=== PATIENT | female | born 1995 | race Two or more races ===

== ENCOUNTER 2017-12-29 21:05 | Emergency (ER) | payer BC ==
[~2017-12-29] VITALS: Ht 157.5 cm; Wt 56.7 kg
[2017-12-29] MEDS ORDERED: NKM (21:17)
[2017-12-29 21:52] VITALS: BP 110/72
--- NOTE | 2017-12-29 22:07 | Emergency Room Report ---
History of Present Illness General Chief Complaint: Vomiting Source: Patient Present Illness HPI Pt. is here because she has been drinking. Denies specific trauma, no fall, no headache, no neck pain, no cp, no abd pain, no sob, no extremity pain. Prior history states had about 8 drink equivalents last night. Poor judgment; didn't realize. No report of trauma. The patient denies specific complaint. Pt. is sober and here with mom. Allergies: Coded Allergies: No Known Allergies (Unverified , 12/29/17) Patient History Last Menstrual Period: 1 week ago Nursing Documentation-[facility] Past Medical History: No Stated History Review of Systems Constitutional: Reports: no symptoms Eye: Reports: no symptoms ENT: Reports: no symptoms Respiratory: Reports: no symptoms Cardiovascular: Reports: no symptoms Gastrointestinal: Reports: nausea, vomiting Genitourinary: Reports: no symptoms Musculoskeletal: Reports: no symptoms Skin: Reports: no symptoms Psychiatric: Reports: no symptoms Neurological: Reports: no symptoms Endocrine: Reports: no symptoms Hematologic/Lymphatic: Reports: no symptoms Allergic: Reports: no symptoms All Other Systems: negative except mentioned in HPI Physical Exam Vital Signs Date Time Temp Pulse Resp B/P (MAP) Pulse Ox O2 Delivery O2 Flow Rate FiO2 12/29/17 21:12 98.3 110 16 111/72 96 Room Air 98.2 Sp02 EP Interpretation: reviewed, normal General Appearance: normal inspection, well appearing, no apparent distress, alert, GCS 15, non-toxic Head: normocephalic, atraumatic Eyes: bilateral eye normal inspection, bilateral eye PERRL, bilateral eye EOMI ENT: normal ENT inspection, hearing grossly normal, normal pharynx, no angioedema, normal voice, moist mucus membranes Neck: normal inspection, full range of motion, supple, no meningismus, no bony tend Respiratory: normal inspection, lungs clear, normal breath sounds, no rhonchi, no respiratory distress, no retraction, no accessory muscle use, no wheezing Cardiovascular #1: normal inspection, regular rate, rhythm, no edema Gastrointestinal: normal inspection, normal bowel sounds, non tender, soft, no mass, non-distended Musculoskeletal: gait/station normal, normal range of motion Neurologic: normal inspection, alert, oriented x3, responsive, motor strength/ tone normal Psychiatric: normal inspection, judgement/insight normal, memory normal Suicide Risk Assessment: Suicidal Ideation: No Had intent to initiate attempt: No Pt's plan for suicide attempt: No Has means to complete attempt: No Skin: normal inspection, normal color, no rash, warm/dry Medical Decision Making Diagnostic Impression: Primary Impression: Vomiting ER Course pt. is fine; she got drunk first time, not realizing hr here 99, c/o vomiting at home giving iv fluids, iv pepcid, iv zofran here; anticipate d/c after that Last Vital Signs Date Time Temp Pulse Resp B/P (MAP) Pulse Ox O2 Delivery O2 Flow Rate FiO2 12/29/17 21:52 98.4 100 17 110/72 100 Room Air 98.4 Status: improved Disposition: HOME, SELF-CARE Condition: Improved Patient Instructions: Nausea and Vomiting, Adult Fan Carter M.D. Dec 29, 2017 22:07
[2017-12-29 23:29] VITALS: BP 18/94
== END 2017-12-29 23:20 | disposition home or self-care (01) ==
LOC: EMR 23:15
DX: R11.10 Vomiting, unspecified (principal)
CPT/HCPCS: 96361; 96374; 96375; 99284; J2405; S0028